=== PATIENT | female | born 1965 | race Two or more races ===

== ENCOUNTER 2016-07-19 19:46 | Emergency (ER) | payer MEDICAID, OTHER ==
[~2016-07-19] VITALS: Ht 157.5 cm; Wt 77.1 kg
[2016-07-19 21:24] VITALS: BP 122/80
== END 2016-07-19 22:05 | disposition home or self-care (01) ==
LOC: EDBD 19:46 → ER 19:46
DX: S16.1XXA Strain of muscle, fascia and tendon at neck level, initial encounter (principal); S83.8X2A Sprain of other specified parts of left knee, initial encounter; V43.02XA Car driver injured in collision with other type car in nontraffic accident, initial encounter; Y93.89 Activity, other specified; Y99.8 Other external cause status; Y92.481 Parking lot as the place of occurrence of the external cause
CPT/HCPCS: 72040; 72070; 73562

== ENCOUNTER 2016-07-23 16:13 | Emergency (ER) | payer MEDICAID ==
[~2016-07-23] VITALS: Ht 157.5 cm; Wt 77.1 kg
[2016-07-23 18:21] VITALS: BP 136/77
== END 2016-07-23 19:27 | disposition home or self-care (01) ==
LOC: ER 16:31
DX: S83.92XD Sprain of unspecified site of left knee, subsequent encounter (principal); S16.1XXD Strain of muscle, fascia and tendon at neck level, subsequent encounter; X58.XXXD Exposure to other specified factors, subsequent encounter

== ENCOUNTER 2018-04-16 22:45 | Emergency (ER) | payer MEDICAID ==
[~2018-04-16] VITALS: Ht 160 cm; Wt 76.2 kg
[2018-04-16 23:09] LABS: Basophils # (auto) 0 uL; Basophils % (auto) 0.6 % (0.0-2.0); Eosinophils # (auto) 0.2 uL; Eosinophils % (auto) 2.2 % (0.0-7.0); Hematocrit 43.7 % (36.0-46.0); Hemoglobin 15.2 g/dL (12.2-16.2); Lymphocytes % (auto) 40.3 % (10.0-50.0); Mean Corpuscular Hemoglobin 31.6 pg (28.0-32.0); Mean Corpuscular Hgb Conc. 34.7 g/dL (32.0-36.0); Mean Corpuscular Volume 90.9 fL (80.0-100.0); Monocytes # (auto) 0.4 uL; Monocytes % (auto) 5.8 % (0.0-12.0); Neutrophils # (auto) 3.8 uL; Neutrophils % (auto) 51.1 % (37.0-80.0); Platelet Count (auto) 310 10^3/uL (140-450); Red Cell Distribution Width 13.3 % (11.8-14.3); White Blood Cell 7.5 10^3/uL (4.4-10.8)
[2018-04-16 23:28] LABS: Albumin 3.7 g/dL (3.4-5.0); Calcium 8.2 mg/dL (8.5-10.1); Potassium 3.5 mmol/L (3.5-5.1)
[2018-04-16 23:30] LABS: Bilirubin, Total 0.4 mg/dL (0.2-1.0); Total Protein 8.1 g/dL (6.4-8.2)
[2018-04-17 00:46] LABS: Urine Bacteria FEW /hpf (None Seen); Urine Blood 1+ /uL (Negative); Urine Mucus FEW (None Seen); Urine Specific Gravity 1.025 (1.001-1.035); Urine WBC 1 /hpf (0 - 5)
[2018-04-17] MEDS ORDERED: methylPREDNISolone SOD SUCC 125 MG/2 ML VL IV ONE (01:00)
[2018-04-17] MEDS ORDERED: FAMOTIDINE (10MG/ML) 2ML VL IV ONE (01:00)
[2018-04-17] MEDS ORDERED: EPINEPHrine HCL 1 MG/1 ML AMP SC ONE (01:00)
[2018-04-17] MEDS ORDERED: SODIUM CHLORIDE 0.9% 1,000 ML IV ONE (01:00)
[2018-04-17 01:14] VITALS: BP 119/70
== END 2018-04-17 02:15 | disposition home or self-care (01) ==
LOC: ER 22:45
DX: T78.3XXA Angioneurotic edema, initial encounter (principal); T78.40XA Allergy, unspecified, initial encounter; X58.XXXA Exposure to other specified factors, initial encounter
CPT/HCPCS: 36415; 80053; 81001; 85025; 96372; 96374; 96375; 99283; J0171; J2930; J3490